=== PATIENT | female | born 1970 | race Caucasian/White ===

== ENCOUNTER 2017-08-01 20:48 | Emergency (ER) | payer MEDICARE, MEDICAID ==
[~2017-08-01] VITALS: Ht 162.6 cm; Wt 61.5 kg
[~2017-08-01 20:48] MED LIST: CEPH500T PO; DIPH25CA83 PO; NO HOME MEDS
[2017-08-01 22:01] LABS: BASOPHILS % (AUTO) 0.3 % (0-1); EOSINOPHILS # (AUTO) 0.2 X10'3 (0-0.9); EOSINOPHILS % (AUTO) 1.5 % (0-6); HEMATOCRIT 41.7 % (35.0-45.0); HEMOGLOBIN 14.4 g/dl (12.0-16.0); LYMPHOCYTES # (AUTO) 2.7 X10'3 (1.1-4.8); LYMPHOCYTES % (AUTO) 20.2 % (21-51); MEAN CORPUSCULAR HEMOGLOBIN 31.6 PG (27.0-31.0); MEAN CORPUSCULAR HGB CONC 34.5 % (33.0-36.5); MEAN CORPUSCULAR VOLUME 91.5 FL (78-98); MEAN PLATELET VOLUME 6.6 FL (7.4-10.4); MONOCYTES # (AUTO) 0.8 X10'3 (0-0.9); MONOCYTES % (AUTO) 5.9 % (2-12); NEUTROPHILS # (AUTO) 9.6 X10'3 (1.8-7.7); NEUTROPHILS % (AUTO) 72.1 % (42-75); PLATELET COUNT 381 X10'3 (140-440); RED BLOOD COUNT 4.55 X10'6 (4.20-5.60); RED CELL DISTRIBUTION WIDTH 13.1 % (11.5-14.5); WHITE BLOOD COUNT 13.3 X10'3 (4.5-11.0)
[2017-08-01 22:20] LABS: ALANINE AMINOTRANSFERASE 30 U/L (12-78); ALBUMIN 3.6 G/DL (3.4-5.0); ALBUMIN/GLOBULIN RATIO 0.8 (1.1-1.5); ALKALINE PHOSPHATASE 76 IU/L (46-116); ANION GAP 11 (8-16); ASPARTATE AMINO TRANSFERASE 31 U/L (10-37); BILIRUBIN,TOTAL 0.3 MG/DL (0.1-1.0); BLOOD UREA NITROGEN 9 MG/DL (7-18); BUN/CREATININE RATIO 12.5 (6.6-38.0); CALCIUM 8.7 MG/DL (8.5-10.1); CHLORIDE 102 MMOL/L (99-107); CREATININE 0.72 MG/DL (0.40-0.90); GLUCOSE 83 MG/DL (70-104); SODIUM 138 MMOL/L (135-145); TOTAL CARBON DIOXIDE 24.9 MMOL/L (24-32); eGFR 87 ML/MIN
[2017-08-01 23:49] VITALS: BP 127/44
== END 2017-08-01 23:51 | disposition home or self-care (01) ==
LOC: ER 20:49
DX: R07.9 Chest pain, unspecified (principal); K44.9 Diaphragmatic hernia without obstruction or gangrene; Z98.51 Tubal ligation status; Z56.0 Unemployment, unspecified
CPT/HCPCS: 36415; 71045; 80053; 84484; 85025; 93005; 99285

== ENCOUNTER 2017-12-16 19:28 | Emergency (ER) | payer MEDICARE, MEDICAID ==
[~2017-12-16] VITALS: Ht 162.6 cm; Wt 59.9 kg
[~2017-12-16 19:28] MED LIST changes: +NITR100C6 PO; +PHEN-716 PO
[2017-12-16 19:51] VITALS: BP 99/65
[2017-12-16] MEDS ORDERED: PENI500T2 PO (21:08)
[2017-12-16] MEDS ORDERED: ONDA8TAB9 PO (21:08)
[2017-12-16] MEDS ORDERED: HYDR-565 PO (21:08)
[2017-12-16] MEDS ORDERED: ondansetron 4mg rapidly disintigrating tab PO ONE (21:10)
[2017-12-16] MEDS ORDERED: HYDROcodone/acetaminophen 10/325mg tab PO ONE (21:10)
[2017-12-16] MEDS ORDERED: penicillin V potassium 500mg tablet PO ONE (21:10)
== END 2017-12-16 21:39 | disposition home or self-care (01) ==
LOC: ER 19:28
DX: K04.7 Periapical abscess without sinus (principal); Z86.14 Personal history of Methicillin resistant Staphylococcus aureus infection; Z90.89 Acquired absence of other organs; Z56.0 Unemployment, unspecified; Z79.899 Other long term (current) drug therapy
CPT/HCPCS: 99284

== ENCOUNTER 2018-04-17 07:46 | Emergency (ER) | payer MEDICARE, MEDICAID ==
[~2018-04-17] VITALS: Ht 162.6 cm; Wt 65.2 kg
[~2018-04-17 07:46] MED LIST changes: +ONDA8TAB9 PO; +PENI500T2 PO
[2018-04-17 07:49] VITALS: BP 148/98
[2018-04-17] MEDS ORDERED: CLIN150C8 PO (08:20)
[2018-04-17] MEDS ORDERED: clindamycin 150mg capsule PO ONE (08:20)
[2018-04-17] MEDS ORDERED: HYDROcodone/acetaminophen 5mg/325mg tablet PO ONE (08:40)
[2018-04-17] MEDS ORDERED: ibuprofen 200mg tablet PO ONE (08:45)
== END 2018-04-17 08:52 | disposition home or self-care (01) ==
LOC: ER 07:46
DX: K08.89 Other specified disorders of teeth and supporting structures (principal); K04.7 Periapical abscess without sinus; Z56.0 Unemployment, unspecified; Z98.890 Other specified postprocedural states; Z98.51 Tubal ligation status; Z86.14 Personal history of Methicillin resistant Staphylococcus aureus infection
CPT/HCPCS: 99283

== ENCOUNTER 2018-06-08 16:17 | Emergency (ER) | payer MEDICARE, MEDICAID ==
[~2018-06-08] VITALS: Ht 162.6 cm; Wt 65.0 kg
[~2018-06-08 16:17] MED LIST changes: +CLIN150C8 PO; -PENI500T2 PO
[2018-06-08] MEDS ORDERED: metoclopramide 5 mg/ml inj IV ONE (17:55)
[2018-06-08] MEDS ORDERED: ketorolac tromethamine 15mg/ml inj. IV ONE (17:55)
[2018-06-08] MEDS ORDERED: diphenhydrAMINE 50 mg/ml inj IV ONE (17:55)
[2018-06-08 18:30] LABS: BASOPHILS % (AUTO) 0.4 % (0-1); EOSINOPHILS # (AUTO) 0.1 X10'3 (0-0.9); HEMATOCRIT 37.2 % (35.0-45.0); HEMOGLOBIN 12.2 g/dl (12.0-16.0); LYMPHOCYTES # (AUTO) 1.6 X10'3 (1.1-4.8); LYMPHOCYTES % (AUTO) 19.9 % (21-51); MEAN CORPUSCULAR HGB CONC 32.8 % (33.0-36.5); MEAN CORPUSCULAR VOLUME 94.5 FL (78-98); MEAN PLATELET VOLUME 6.9 FL (7.4-10.4); MONOCYTES # (AUTO) 0.8 X10'3 (0-0.9); MONOCYTES % (AUTO) 9.4 % (2-12); NEUTROPHILS # (AUTO) 5.6 X10'3 (1.8-7.7); NEUTROPHILS % (AUTO) 69.3 % (42-75); PLATELET COUNT 617 X10'3 (140-440); RED BLOOD COUNT 3.94 X10'6 (4.20-5.60); RED CELL DISTRIBUTION WIDTH 12.9 % (11.5-14.5); WHITE BLOOD COUNT 8.1 X10'3 (4.5-11.0)
[2018-06-08 18:33] LABS: CLARITY,URINE CLEAR (Clear); COLOR,URINE YELLOW (Yellow); GLUCOSE, URINE NEGATIVE (Neg); KETONES,URINE NEGATIVE (Neg); LEUKOCYTE ESTERASE ,URINE NEGATIVE (Neg); NITRITES, URINE NEGATIVE (Neg); OCCULT BLOOD,URINE NEGATIVE (Neg); PH,URINE 6.5 (4.8-8.0); PROTEIN,URINE NEGATIVE (Neg); UROBILINOGEN,URINE 0.2 E.U/dL (0.2-1.0)
[2018-06-08 18:35] LABS: URINE HCG NEGATIVE (NEG)
[2018-06-08 18:39] LABS: INR 1.1 INR; PROTHROMBIN TIME 11.4 SECONDS (9.0-12.0)
[2018-06-08 18:41] LABS: UA COLLECTION TYPE CLN CATCH MIDSTREAM
[2018-06-08 18:52] LABS: ALANINE AMINOTRANSFERASE 54 U/L (12-78); ALBUMIN 2.5 G/DL (3.4-5.0); ALBUMIN/GLOBULIN RATIO 0.5 (1.1-1.5); ALKALINE PHOSPHATASE 75 IU/L (46-116); AMYLASE 55 U/L (25-115); ANION GAP 12 (8-16); ASPARTATE AMINO TRANSFERASE 42 U/L (10-37); BILIRUBIN,TOTAL 0.3 MG/DL (0.1-1.0); BLOOD UREA NITROGEN 8 MG/DL (7-18); BUN/CREATININE RATIO 12.9 (6.6-38.0); CALCIUM 8.6 MG/DL (8.5-10.1); CHLORIDE 98 MMOL/L (99-107); CREATININE 0.62 MG/DL (0.40-0.90); GLUCOSE 126 MG/DL (70-104); LIPASE 210 U/L (73-393); POTASSIUM 3.7 MMOL/L (3.5-5.1); SODIUM 136 MMOL/L (135-145); TOTAL CARBON DIOXIDE 26.3 MMOL/L (24-32); TOTAL PROTEIN 7.4 G/DL (6.4-8.2); eGFR > 90 ML/MIN
[2018-06-08 19:31] VITALS: BP 117/72
== END 2018-06-08 20:25 | disposition home or self-care (01) ==
LOC: ER 16:17
DX: J90 Pleural effusion, not elsewhere classified (principal); R19.7 Diarrhea, unspecified; Z98.51 Tubal ligation status; Z56.0 Unemployment, unspecified
CPT/HCPCS: 36415; 74176; 80053; 81003; 81025; 82150; 83690; 85025; 85610; 85651; 86140; 93005; 96374; 96375; 99284; J1200; J1885; J2765

== ENCOUNTER 2019-03-31 19:06 | Emergency (ER) | payer MEDICARE, MEDICAID ==
[~2019-03-31] VITALS: Ht 162.6 cm; Wt 75.0 kg
[2019-03-31 19:18] VITALS: BP 136/90
[2019-03-31] MEDS ORDERED: SULF5DRO RIGHTEYE (21:08)
== END 2019-03-31 21:32 | disposition home or self-care (01) ==
LOC: ER 19:07
DX: H10.9 Unspecified conjunctivitis (principal); F17.200 Nicotine dependence, unspecified, uncomplicated; Z79.2 Long term (current) use of antibiotics; Z79.899 Other long term (current) drug therapy; Z86.14 Personal history of Methicillin resistant Staphylococcus aureus infection; Z87.440 Personal history of urinary (tract) infections; Z98.890 Other specified postprocedural states; Z98.51 Tubal ligation status; Z56.0 Unemployment, unspecified
CPT/HCPCS: 99283

== ENCOUNTER 2019-05-06 01:51 | Emergency (ER) | payer MEDICARE, MEDICAID ==
[~2019-05-06] VITALS: Ht 162.6 cm; Wt 68.2 kg
[~2019-05-06 01:51] MED LIST changes: +SULF5DRO RIGHTEYE
[2019-05-06 02:52] LABS: CLARITY,URINE TURBID (Clear); COLOR,URINE BROWN (Yellow); GLUCOSE, URINE NEGATIVE (Neg); KETONES,URINE NEGATIVE (Neg); LEUKOCYTE ESTERASE ,URINE SMALL (Neg); NITRITES, URINE NEGATIVE (Neg); OCCULT BLOOD,URINE LARGE (Neg); PROTEIN,URINE 100 mg/dl (Neg)
[2019-05-06 02:55] VITALS: BP 140/95
[2019-05-06 03:23] LABS: UA COLLECTION TYPE CLN CATCH MIDSTREAM
[2019-05-06 03:24] LABS: BACTERIA,URINE 1+ /HPF (Neg); RBC,URINE 50-100 /HPF (0-2); WBC,URINE 30-50 /HPF (0-4)
[2019-05-06 03:25] LABS: SQUAMOUS EPITHELIAL CELL,UR FEW /LPF (FEW)
--- NOTE | 2019-05-06 03:25 | NUR ---
PT UP OUT OF BED . PACING ENCOURAGE THE PATIENT TO STAY IN HER ROOM
[2019-05-06] MEDS ORDERED: PHEN-716 PO (03:31)
[2019-05-06] MEDS ORDERED: NITR100C6 PO (03:31)
[2019-05-06] MEDS ORDERED: phenazopyridine 100mg tablet PO ONE (03:35)
[2019-05-06] MEDS ORDERED: nitrofuran/nitrofuran macrocrysal 100 MG capsule PO ONE (03:35)
== END 2019-05-06 03:50 | disposition home or self-care (01) ==
LOC: ER 01:52
DX: N30.90 Cystitis, unspecified without hematuria (principal); Z86.14 Personal history of Methicillin resistant Staphylococcus aureus infection; Z98.51 Tubal ligation status; Z98.890 Other specified postprocedural states; Z56.0 Unemployment, unspecified; Z79.899 Other long term (current) drug therapy
CPT/HCPCS: 81001; 87077; 87088; 87186; 99283

== ENCOUNTER 2019-07-26 18:18 | Emergency (ER) | payer MEDICAID, MEDICARE ==
[~2019-07-26] VITALS: Ht 162.6 cm; Wt 68.1 kg
[2019-07-26 18:26] VITALS: BP 156/102
[2019-07-26] MEDS ORDERED: triamcinolone acetonide 40mg/ml inj IM ONE (19:55)
== END 2019-07-26 20:14 | disposition home or self-care (01) ==
LOC: ER 18:19
DX: L23.7 Allergic contact dermatitis due to plants, except food (principal); F17.200 Nicotine dependence, unspecified, uncomplicated; Z56.0 Unemployment, unspecified; Z87.01 Personal history of pneumonia (recurrent); Z87.440 Personal history of urinary (tract) infections; Z86.14 Personal history of Methicillin resistant Staphylococcus aureus infection; Z98.890 Other specified postprocedural states; Z98.51 Tubal ligation status; Z79.899 Other long term (current) drug therapy
CPT/HCPCS: 96372; 99283; J3301

== ENCOUNTER 2019-08-08 17:42 | Emergency (ER) | payer MEDICARE ==
[~2019-08-08] VITALS: Ht 162.6 cm; Wt 66.8 kg
[2019-08-08 18:06] VITALS: BP 145/95
[2019-08-08] MEDS ORDERED: PENI500T2 PO (19:23)
[2019-08-08] MEDS ORDERED: penicillin V potassium 500mg tablet PO ONE (19:25)
[2019-08-08] MEDS ORDERED: HYDROcodone/acetaminophen 5mg/325mg tablet PO ONE (19:25)
== END 2019-08-08 20:02 | disposition home or self-care (01) ==
LOC: ER 17:43
DX: K08.89 Other specified disorders of teeth and supporting structures (principal); Z86.14 Personal history of Methicillin resistant Staphylococcus aureus infection; Z87.59 Personal history of other complications of pregnancy, childbirth and the puerperium; Z98.51 Tubal ligation status; Z56.0 Unemployment, unspecified; Z79.2 Long term (current) use of antibiotics; Z79.899 Other long term (current) drug therapy
CPT/HCPCS: 99283

== ENCOUNTER 2019-08-24 10:25 | Emergency (ER) | payer MEDICARE ==
[~2019-08-24] VITALS: Ht 162.6 cm; Wt 68.2 kg
[~2019-08-24 10:25] MED LIST changes: +PENI500T2 PO
[2019-08-24 10:28] VITALS: BP 169/100
[2019-08-24] MEDS ORDERED: ALBU6.7H9 INH (11:13)
[2019-08-24] MEDS ORDERED: PRED20TA PO (11:13)
[2019-08-24] MEDS ORDERED: AMOX-422 PO (11:13)
--- NOTE | 2019-08-24 11:19 | NUR ---
Pt is deaf. Pt offered formal interpretation but declined. Communication through writing messages. Pt felt accomadated.
== END 2019-08-24 11:24 | disposition home or self-care (01) ==
LOC: ER 10:25
DX: J40 Bronchitis, not specified as acute or chronic (principal); J44.1 Chronic obstructive pulmonary disease with (acute) exacerbation; Z86.14 Personal history of Methicillin resistant Staphylococcus aureus infection; Z98.51 Tubal ligation status; Z98.890 Other specified postprocedural states; Z56.0 Unemployment, unspecified; Z79.899 Other long term (current) drug therapy
CPT/HCPCS: 71045; 99283

== ENCOUNTER 2019-10-14 15:47 | Emergency (ER) | payer MEDICARE, MEDICAID ==
[~2019-10-14] VITALS: Ht 162.6 cm; Wt 71.0 kg
[~2019-10-14 15:47] MED LIST changes: +ALBU6.7H9 INH; -PENI500T2 PO
[2019-10-14 16:01] VITALS: BP 128/86
[2019-10-14] MEDS ORDERED: penicillin V potassium 500mg tablet PO ONE (16:55)
[2019-10-14] MEDS ORDERED: ketorolac tromethamine 15mg/ml inj. IM ONE (16:55)
[2019-10-14 17:20] LABS: BASOPHILS # (AUTO) 0.1 X10'3 (0-0.2); BASOPHILS % (AUTO) 0.6 % (0-1); EOSINOPHILS # (AUTO) 0.2 X10'3 (0-0.9); HEMATOCRIT 42.7 % (35.0-45.0); HEMOGLOBIN 14.5 g/dl (12.0-16.0); LYMPHOCYTES # (AUTO) 1.9 X10'3 (1.1-4.8); LYMPHOCYTES % (AUTO) 22.1 % (21-51); MEAN CORPUSCULAR HEMOGLOBIN 33.1 PG (27.0-31.0); MEAN CORPUSCULAR VOLUME 97.1 FL (78-98); MONOCYTES # (AUTO) 0.6 X10'3 (0-0.9); MONOCYTES % (AUTO) 6.6 % (2-12); NEUTROPHILS % (AUTO) 68.7 % (42-75); PLATELET COUNT 249 X10'3 (140-440); RED BLOOD COUNT 4.39 X10'6 (4.20-5.60); WHITE BLOOD COUNT 8.8 X10'3 (4.5-11.0)
[2019-10-14] MEDS ORDERED: PENI500T2 PO (17:24)
[2019-10-14] MEDS ORDERED: CHLO473M3 PO (17:25)
[2019-10-14 17:43] LABS: ALANINE AMINOTRANSFERASE 23 U/L (12-78); ALBUMIN 3.3 G/DL (3.4-5.0); ALBUMIN/GLOBULIN RATIO 0.9 (1.1-1.5); ALKALINE PHOSPHATASE 78 IU/L (46-116); ANION GAP 7 (8-16); ASPARTATE AMINO TRANSFERASE 20 U/L (10-37); BILIRUBIN,TOTAL 0.3 MG/DL (0.1-1.0); BLOOD UREA NITROGEN 8 MG/DL (7-18); BUN/CREATININE RATIO 10.7 (6.6-38.0); CHLORIDE 104 MMOL/L (99-107); CREATININE 0.75 MG/DL (0.40-0.90); GLUCOSE 88 MG/DL (70-104); POTASSIUM 3.9 MMOL/L (3.5-5.1); SODIUM 141 MMOL/L (135-145); TOTAL CARBON DIOXIDE 30.2 MMOL/L (24-32); TOTAL PROTEIN 6.9 G/DL (6.4-8.2); eGFR 82 ML/MIN
== END 2019-10-14 18:07 | disposition home or self-care (01) ==
LOC: ER 15:48
DX: K04.7 Periapical abscess without sinus (principal); R07.89 Other chest pain; F12.90 Cannabis use, unspecified, uncomplicated; J44.9 Chronic obstructive pulmonary disease, unspecified; Z86.14 Personal history of Methicillin resistant Staphylococcus aureus infection; Z98.51 Tubal ligation status; Z56.0 Unemployment, unspecified; Z79.899 Other long term (current) drug therapy
CPT/HCPCS: 36415; 71045; 80053; 84484; 85025; 93005; 96372; 99285; J1885

== ENCOUNTER 2019-10-26 17:12 | Emergency (ER) | payer MEDICARE, MEDICAID ==
[~2019-10-26] VITALS: Ht 170.2 cm; Wt 80.0 kg
[~2019-10-26 17:12] MED LIST changes: +CHLO473M3 PO; +PENI500T2 PO
[2019-10-26] MEDS ORDERED: LIDOcaine 4% (40 mg/ml) topical solution 50ml TP ONE (18:20)
[2019-10-26 19:01] VITALS: BP 164/98
== END 2019-10-26 19:10 | disposition home or self-care (01) ==
LOC: ER 17:13
DX: H92.01 Otalgia, right ear (principal); J44.9 Chronic obstructive pulmonary disease, unspecified; F12.90 Cannabis use, unspecified, uncomplicated; Z86.14 Personal history of Methicillin resistant Staphylococcus aureus infection; Z98.51 Tubal ligation status; Z98.890 Other specified postprocedural states; Z56.0 Unemployment, unspecified; Z79.899 Other long term (current) drug therapy
CPT/HCPCS: 99282

== ENCOUNTER 2019-12-13 22:59 | Emergency (ER) | payer MEDICARE, MEDICAID ==
[~2019-12-13] VITALS: Ht 162.6 cm; Wt 77.0 kg
[~2019-12-13 22:59] MED LIST changes: -PENI500T2 PO
[2019-12-13 23:37] LABS: BASOPHILS # (AUTO) 0.1 X10'3 (0-0.2); EOSINOPHILS # (AUTO) 0.2 X10'3 (0-0.9); EOSINOPHILS % (AUTO) 2.6 % (0-6); HEMATOCRIT 43.5 % (35.0-45.0); HEMOGLOBIN 14.6 g/dl (12.0-16.0); LYMPHOCYTES # (AUTO) 2.8 X10'3 (1.1-4.8); LYMPHOCYTES % (AUTO) 31.1 % (21-51); MEAN CORPUSCULAR HEMOGLOBIN 32.2 PG (27.0-31.0); MEAN CORPUSCULAR HGB CONC 33.6 g/dL (33.0-36.5); MEAN CORPUSCULAR VOLUME 95.8 FL (78-98); MEAN PLATELET VOLUME 7.5 FL (7.4-10.4); MONOCYTES # (AUTO) 0.6 X10'3 (0-0.9); MONOCYTES % (AUTO) 7.1 % (2-12); NEUTROPHILS # (AUTO) 5.3 X10'3 (1.8-7.7); NEUTROPHILS % (AUTO) 58.2 % (42-75); PLATELET COUNT 257 X10'3 (140-440); RED BLOOD COUNT 4.54 X10'6 (4.20-5.60); RED CELL DISTRIBUTION WIDTH 12.6 % (11.5-14.5); WHITE BLOOD COUNT 9.1 X10'3 (4.5-11.0)
[2019-12-13 23:48] LABS: ALANINE AMINOTRANSFERASE 27 U/L (12-78); ALBUMIN 3.8 G/DL (3.4-5.0); ALKALINE PHOSPHATASE 79 IU/L (46-116); ANION GAP 10 (8-16); ASPARTATE AMINO TRANSFERASE 24 U/L (10-37); BILIRUBIN,TOTAL 0.3 MG/DL (0.1-1.0); BLOOD UREA NITROGEN 18 MG/DL (7-18); CALCIUM 8.9 MG/DL (8.5-10.1); CHLORIDE 104 MMOL/L (99-107); CREATININE 1.06 MG/DL (0.40-0.90); GLUCOSE 135 MG/DL (70-104); LIPASE 137 U/L (73-393); POTASSIUM 3.9 MMOL/L (3.5-5.1); SODIUM 141 MMOL/L (135-145); TOTAL CARBON DIOXIDE 26.8 MMOL/L (24-32); TOTAL PROTEIN 7.6 G/DL (6.4-8.2); eGFR 55 ML/MIN
[2019-12-14] MEDS ORDERED: iohexol 300mg/ml 100ml inj. ONE (01:03)
[2019-12-14 03:57] VITALS: BP 108/66
== END 2019-12-14 04:07 | disposition home or self-care (01) ==
LOC: ER 22:59
DX: R10.9 Unspecified abdominal pain (principal); R20.2 Paresthesia of skin; J44.9 Chronic obstructive pulmonary disease, unspecified; F17.200 Nicotine dependence, unspecified, uncomplicated; F12.90 Cannabis use, unspecified, uncomplicated; Z86.14 Personal history of Methicillin resistant Staphylococcus aureus infection; Z98.51 Tubal ligation status; Z98.890 Other specified postprocedural states; Z72.89 Other problems related to lifestyle; Z56.0 Unemployment, unspecified; Z79.899 Other long term (current) drug therapy
CPT/HCPCS: 36415; 74177; 80053; 83690; 85025; 99285; Q9967

== ENCOUNTER 2020-01-27 19:39 | Emergency (ER) | payer MEDICARE, MEDICAID ==
[~2020-01-27] VITALS: Ht 162.6 cm; Wt 70.0 kg
--- NOTE | 2020-01-27 23:19 | NUR ---
pt has given permission to talk with daughter about care.
--- NOTE | 2020-01-27 23:40 | NUR ---
PT DAUGHTER VAHE MENJIVAR BE REACHED [phone]
[2020-01-28] MEDS ORDERED: ketorolac tromethamine 15mg/ml inj. IM ONE (01:00)
[2020-01-28] MEDS ORDERED: acetaminophen 325mg tablet PO ONE (01:00)
--- NOTE | 2020-01-28 01:13 | NUR ---
Dr. Kaminski at bedside writing on paper to communicate with Pt. We obtained the laptop with [employer] safety representative and used for further assessment. Pt to have d dimer drawn and if positive then will have ultrasound. current vss. Pt cooperative.
--- NOTE | 2020-01-28 01:22 | NUR ---
pts daughter called and updated on plan of care.
--- NOTE | 2020-01-28 01:39 | NUR ---
given toradol 15 mg shot and tylenol 650 mg.
[2020-01-28 01:55] LABS: D-DIMER 0.33 MG/L FEU (0-0.50)
[2020-01-28] MEDS ORDERED: AMOX500C2 PO (02:02)
[2020-01-28 02:55] VITALS: BP 131/85
== END 2020-01-28 03:00 | disposition home or self-care (01) ==
LOC: ER 19:40
DX: K02.9 Dental caries, unspecified (principal); K08.89 Other specified disorders of teeth and supporting structures; M79.662 Pain in left lower leg; J44.9 Chronic obstructive pulmonary disease, unspecified; F12.90 Cannabis use, unspecified, uncomplicated; Z87.01 Personal history of pneumonia (recurrent); Z87.440 Personal history of urinary (tract) infections; Z86.14 Personal history of Methicillin resistant Staphylococcus aureus infection; Z98.51 Tubal ligation status; Z98.890 Other specified postprocedural states; Z72.89 Other problems related to lifestyle; Z56.0 Unemployment, unspecified; Z79.2 Long term (current) use of antibiotics; Z79.899 Other long term (current) drug therapy
CPT/HCPCS: 36415; 85379; 96372; 99285; J1885

== ENCOUNTER 2020-05-03 19:19 | Emergency (ER) | payer MEDICARE, MEDICAID ==
[~2020-05-03] VITALS: Ht 162.6 cm; Wt 74.7 kg
[2020-05-03 19:21] VITALS: BP 160/97
[2020-05-03] MEDS ORDERED: PENI500T2 PO (19:47)
== END 2020-05-03 19:53 | disposition home or self-care (01) ==
LOC: ER 19:19
DX: K08.89 Other specified disorders of teeth and supporting structures (principal); F12.90 Cannabis use, unspecified, uncomplicated; J44.9 Chronic obstructive pulmonary disease, unspecified; Z86.14 Personal history of Methicillin resistant Staphylococcus aureus infection; Z98.891 History of uterine scar from previous surgery; Z98.51 Tubal ligation status; Z56.0 Unemployment, unspecified; Z79.2 Long term (current) use of antibiotics; Z79.899 Other long term (current) drug therapy; Z72.89 Other problems related to lifestyle
CPT/HCPCS: 99283

== ENCOUNTER 2020-06-08 14:52 | Emergency (ER) | payer MEDICARE, MEDICAID ==
[~2020-06-08] VITALS: Ht 162.6 cm; Wt 73.4 kg
[2020-06-08 14:57] VITALS: BP 138/84
[2020-06-08] MEDS ORDERED: triamcinolone acetonide 40mg/ml inj IM ONE (15:15)
[2020-06-08] MEDS ORDERED: PRED20TA PO (15:17)
== END 2020-06-08 15:28 | disposition home or self-care (01) ==
LOC: ER 14:53
DX: L23.7 Allergic contact dermatitis due to plants, except food (principal); J44.9 Chronic obstructive pulmonary disease, unspecified; F17.200 Nicotine dependence, unspecified, uncomplicated; F12.90 Cannabis use, unspecified, uncomplicated; Z87.440 Personal history of urinary (tract) infections; Z86.14 Personal history of Methicillin resistant Staphylococcus aureus infection; Z87.01 Personal history of pneumonia (recurrent); Z98.51 Tubal ligation status; Z98.890 Other specified postprocedural states; Z72.89 Other problems related to lifestyle; Z56.0 Unemployment, unspecified; Z79.2 Long term (current) use of antibiotics; Z79.899 Other long term (current) drug therapy
CPT/HCPCS: 96372; 99283; J3301

== ENCOUNTER 2020-07-24 02:28 | Emergency (ER) | payer MEDICARE, MEDICAID ==
[~2020-07-24] VITALS: Ht 162.6 cm; Wt 70.5 kg
[2020-07-24 02:36] VITALS: BP 158/93
[2020-07-24] MEDS ORDERED: HYDROcodone/acetaminophen 5mg/325mg tablet PO ONE (03:05)
[2020-07-24] MEDS ORDERED: naproxen 500mg tablet PO ONE (03:05)
[2020-07-24] MEDS ORDERED: amox tr/potassium clavulanate 875/125mg TAB PO ONE (03:05)
[2020-07-24] MEDS ORDERED: AMOX-422 PO (03:20)
[2020-07-24] MEDS ORDERED: NAPR-56 PO (03:20)
== END 2020-07-24 03:41 | disposition home or self-care (01) ==
LOC: ER 02:29
DX: K02.9 Dental caries, unspecified (principal); L03.211 Cellulitis of face; K08.89 Other specified disorders of teeth and supporting structures; L23.7 Allergic contact dermatitis due to plants, except food; J44.9 Chronic obstructive pulmonary disease, unspecified; F12.90 Cannabis use, unspecified, uncomplicated; Z87.440 Personal history of urinary (tract) infections; Z86.14 Personal history of Methicillin resistant Staphylococcus aureus infection; Z87.01 Personal history of pneumonia (recurrent); Z98.51 Tubal ligation status; Z98.890 Other specified postprocedural states; Z72.89 Other problems related to lifestyle; Z56.0 Unemployment, unspecified; Z79.2 Long term (current) use of antibiotics; Z79.899 Other long term (current) drug therapy
CPT/HCPCS: 99284

== ENCOUNTER 2020-10-02 05:39 | Emergency (ER) | payer MEDICARE, MEDICAID ==
[~2020-10-02] VITALS: Ht 162.6 cm; Wt 77.0 kg
[2020-10-02 05:52] VITALS: BP 142/74
[2020-10-02] MEDS ORDERED: SULF1TAB49 PO (06:25)
== END 2020-10-02 06:58 | disposition home or self-care (01) ==
LOC: ER 05:40
DX: L03.116 Cellulitis of left lower limb (principal); J44.9 Chronic obstructive pulmonary disease, unspecified; F12.90 Cannabis use, unspecified, uncomplicated; Z79.2 Long term (current) use of antibiotics; Z79.899 Other long term (current) drug therapy; Z87.01 Personal history of pneumonia (recurrent); Z86.14 Personal history of Methicillin resistant Staphylococcus aureus infection; Z98.891 History of uterine scar from previous surgery; Z98.51 Tubal ligation status; Z56.0 Unemployment, unspecified
CPT/HCPCS: 99283

== ENCOUNTER 2020-12-16 00:17 | Emergency (ER) | payer MEDICARE, MEDICAID ==
[~2020-12-16] VITALS: Ht 162.6 cm; Wt 72.7 kg
[2020-12-16 02:50] VITALS: BP 117/69
[2020-12-16] MEDS ORDERED: dicyclomine 10 MG capsule PO ONE (03:05)
[2020-12-16 03:26] LABS: ALANINE AMINOTRANSFERASE 29 U/L (12-78); ALBUMIN 3.6 G/DL (3.4-5.0); ALBUMIN/GLOBULIN RATIO 1.2 (1.1-1.5); ALKALINE PHOSPHATASE 66 IU/L (46-116); ANION GAP 5 (8-16); ASPARTATE AMINO TRANSFERASE 31 U/L (10-37); BILIRUBIN,TOTAL 0.5 MG/DL (0.1-1.0); BLOOD UREA NITROGEN 18 MG/DL (7-18); BUN/CREATININE RATIO 23.1 (6.6-38.0); CALCIUM 8.1 MG/DL (8.5-10.1); CHLORIDE 105 MMOL/L (99-107); CREATININE 0.78 MG/DL (0.40-0.90); GLUCOSE 94 MG/DL (70-104); SODIUM 138 MMOL/L (135-145); TOTAL CARBON DIOXIDE 27.9 MMOL/L (24-32); TOTAL PROTEIN 6.7 G/DL (6.4-8.2); eGFR 78 ML/MIN
[2020-12-16] MEDS ORDERED: DICY10CA88 PO (03:46)
[2020-12-16] MEDS ORDERED: OMEP40CA21 PO (03:46)
== END 2020-12-16 03:57 | disposition home or self-care (01) ==
LOC: ER 00:18
DX: R10.11 Right upper quadrant pain (principal); R10.13 Epigastric pain; R11.0 Nausea; J44.9 Chronic obstructive pulmonary disease, unspecified; F12.90 Cannabis use, unspecified, uncomplicated; F17.210 Nicotine dependence, cigarettes, uncomplicated; Z87.01 Personal history of pneumonia (recurrent); Z86.14 Personal history of Methicillin resistant Staphylococcus aureus infection; Z87.440 Personal history of urinary (tract) infections; Z72.89 Other problems related to lifestyle; Z56.0 Unemployment, unspecified; Z79.2 Long term (current) use of antibiotics; Z79.899 Other long term (current) drug therapy
CPT/HCPCS: 36415; 80053; 99283

== ENCOUNTER 2021-02-19 23:07 | Emergency (ER) | payer MEDICARE, MEDICAID ==
[~2021-02-19] VITALS: Ht 162.6 cm; Wt 77.2 kg
[2021-02-19] MEDS ORDERED: ibuprofen tablet 400 MG TABLET PO ONE (23:50)
[2021-02-19] MEDS ORDERED: acetaminophen 325mg tablet PO ONE (23:50)
[2021-02-19] MEDS ORDERED: ibuprofen 200mg tablet PO ONE (23:55)
[2021-02-20] MEDS ORDERED: IBUP-1985 PO (00:33)
[2021-02-20] MEDS ORDERED: ACET-812 PO (00:33)
--- NOTE | 2021-02-20 01:34 | NUR ---
PATIENT SEEN AND TREATED BY . NO FX'S FOUND. KNEE CONTUSION, ANKLE ABRASION. TRIPLE ANTIBIOTIC APPLIED. PO MOTRIN AND TYLENOL GIVEN. PATIENT GIVEN AND EXHIBITS UNDERSTANDING OF DISCH INST. DISCH TO HOME.
[2021-02-20 01:36] VITALS: BP 119/87
== END 2021-02-20 01:40 | disposition home or self-care (01) ==
LOC: ER 23:09
DX: S80.02XA Contusion of left knee, initial encounter (principal); S90.811A Abrasion, right foot, initial encounter; J44.9 Chronic obstructive pulmonary disease, unspecified; F12.90 Cannabis use, unspecified, uncomplicated; Z87.01 Personal history of pneumonia (recurrent); Z86.14 Personal history of Methicillin resistant Staphylococcus aureus infection; Z72.89 Other problems related to lifestyle; Z56.0 Unemployment, unspecified; Z98.891 History of uterine scar from previous surgery; Z98.51 Tubal ligation status; Z87.440 Personal history of urinary (tract) infections; Z79.2 Long term (current) use of antibiotics; Z79.899 Other long term (current) drug therapy; W19.XXXA Unspecified fall, initial encounter; Y93.89 Activity, other specified; Y92.89 Other specified places as the place of occurrence of the external cause; Y99.8 Other external cause status
CPT/HCPCS: 73560; 73630; 99284

== ENCOUNTER 2021-04-06 02:12 | Emergency (ER) | payer MEDICARE, MEDICAID ==
[~2021-04-06] VITALS: Ht 162.6 cm; Wt 69.3 kg
[~2021-04-06 02:12] MED LIST changes: +ACET-812 PO; +IBUP-1985 PO
[2021-04-06] MEDS ORDERED: IBUP-1984 PO (04:10)
--- NOTE | 2021-04-06 04:54 | NUR ---
Patient was evaluated by ER MD. Patient exhibits anger and defiance to medical personnel. Patient knee was wrapped with an SHONA. Disch to home with flu inst.
[2021-04-06 05:07] VITALS: BP 109/71
== END 2021-04-06 05:26 | disposition home or self-care (01) ==
LOC: ER 02:12
DX: M17.12 Unilateral primary osteoarthritis, left knee (principal); M25.562 Pain in left knee; J44.9 Chronic obstructive pulmonary disease, unspecified; F12.90 Cannabis use, unspecified, uncomplicated; Z86.14 Personal history of Methicillin resistant Staphylococcus aureus infection; Z87.440 Personal history of urinary (tract) infections; Z87.01 Personal history of pneumonia (recurrent); Z98.51 Tubal ligation status; Z98.890 Other specified postprocedural states; Z72.89 Other problems related to lifestyle; Z56.0 Unemployment, unspecified; Z79.2 Long term (current) use of antibiotics; Z79.899 Other long term (current) drug therapy
CPT/HCPCS: 73564; 99283

== ENCOUNTER 2021-10-21 06:56 | Emergency (ER) | payer MEDICARE, MEDICAID ==
[~2021-10-21] VITALS: Ht 162.6 cm; Wt 77.3 kg
[2021-10-21 07:00] VITALS: BP 133/99
[2021-10-21 08:02] LABS: CLARITY,URINE CLEAR (Clear); COLOR,URINE YELLOW (Yellow); GLUCOSE, URINE NEGATIVE (Neg); KETONES,URINE NEGATIVE (Neg); LEUKOCYTE ESTERASE ,URINE NEGATIVE (Neg); NITRITES, URINE NEGATIVE (Neg); OCCULT BLOOD,URINE NEGATIVE (Neg); PROTEIN,URINE NEGATIVE (Neg); UROBILINOGEN,URINE 0.2 E.U/dL (0.2-1.0)
[2021-10-21 08:03] LABS: UA COLLECTION TYPE VOIDED
--- NOTE | 2021-10-21 08:27 | NUR ---
PT PLACED IN ER17. PT IS DEAF AND ORIGINAL DISCUSSION TO HER CURRENT REASON FOR THE VISIT WAS DONE IN WRITING. PT HAS REQUESTED THE [facility]RI FOR HER VISIT. VRI CART WAS OBTAINED, HOWEVER THE WEBSITE FOR [facility] IS NOT CONNECTING. NURSING REWORKER CALLED AND HOSPITAL IT WAS CALLED FOR ASSISTANCE. PT WAS INFORMED OF THE ISSUE AND THAT UNTILS IT COULD BE RESOLVED THE VRI WAS NOT AVAILABLE AND THAT SHE WOULD HAVE TO WRITE HER CONVERSATIONS. PT UNDERSTOOD Addendum: 10/21/21 at 0836 by DAYANNA ABLE TO ACCESS VRI, PROVIDER IS IN WITH PT FOR EVALUATION
[2021-10-21] MEDS ORDERED: azithromycin 250mg tablet PO ONE (08:50)
[2021-10-21] MEDS ORDERED: CefTRIAXone 500MG IM Kit w/LIDOcaine IM ONE (08:50)
[2021-10-21] MEDS ORDERED: CELE-85 PO (08:52)
[2021-10-21] MEDS ORDERED: METR-159 PO (08:52)
[2021-10-21] MEDS ORDERED: FLUC200T8 PO (08:52)
== END 2021-10-21 10:22 | disposition home or self-care (01) ==
LOC: ER 06:57
DX: M25.562 Pain in left knee (principal); N76.0 Acute vaginitis; R30.9 Painful micturition, unspecified; J44.9 Chronic obstructive pulmonary disease, unspecified; F17.210 Nicotine dependence, cigarettes, uncomplicated; Z72.89 Other problems related to lifestyle; F12.90 Cannabis use, unspecified, uncomplicated; Z87.01 Personal history of pneumonia (recurrent); Z87.440 Personal history of urinary (tract) infections; Z86.14 Personal history of Methicillin resistant Staphylococcus aureus infection; Z98.51 Tubal ligation status; Z98.890 Other specified postprocedural states; Z56.0 Unemployment, unspecified; Z79.2 Long term (current) use of antibiotics; Z79.899 Other long term (current) drug therapy
CPT/HCPCS: 73564; 81003; 96372; 99284; J0696

== ENCOUNTER 2021-12-08 04:25 | Emergency (ER) | payer MEDICARE, MEDICAID ==
[~2021-12-08] VITALS: Ht 162.6 cm; Wt 66.0 kg
[~2021-12-08 04:25] MED LIST changes: +CELE-85 PO
[2021-12-08 04:49] VITALS: BP 133/67
[2021-12-08 05:40] LABS: BASOPHILS % (AUTO) 0.2 % (0-1); EOSINOPHILS # (AUTO) 0.1 X10'3 (0-0.9); EOSINOPHILS % (AUTO) 1.2 % (0-6); HEMOGLOBIN 14.3 g/dl (12.0-16.0); LYMPHOCYTES # (AUTO) 0.5 X10'3 (1.1-4.8); MEAN CORPUSCULAR HEMOGLOBIN 32.9 PG (27.0-31.0); MEAN CORPUSCULAR HGB CONC 34.9 g/dL (33.0-36.5); MEAN CORPUSCULAR VOLUME 94.1 FL (78-98); MEAN PLATELET VOLUME 7.3 FL (7.4-10.4); MONOCYTES # (AUTO) 0.5 X10'3 (0-0.9); MONOCYTES % (AUTO) 7.6 % (2-12); NEUTROPHILS # (AUTO) 5.9 X10'3 (1.8-7.7); PLATELET COUNT 218 X10'3 (140-440); RED BLOOD COUNT 4.36 X10'6 (4.20-5.60)
[2021-12-08 05:52] LABS: ALANINE AMINOTRANSFERASE 27 U/L (12-78); ALBUMIN/GLOBULIN RATIO 1.1 (1.1-1.5); ALKALINE PHOSPHATASE 89 IU/L (46-116); ANION GAP 11 (8-16); ASPARTATE AMINO TRANSFERASE 24 U/L (10-37); BILIRUBIN,TOTAL 0.5 MG/DL (0.1-1.0); BLOOD UREA NITROGEN 14 MG/DL (7-18); BUN/CREATININE RATIO 15.4 (6.6-38.0); CALCIUM 8.5 MG/DL (8.5-10.1); CHLORIDE 102 MMOL/L (99-107); CREATININE 0.91 MG/DL (0.40-0.90); GLUCOSE 115 MG/DL (70-104); POTASSIUM 3.7 MMOL/L (3.5-5.1); SODIUM 138 MMOL/L (135-145); TOTAL CARBON DIOXIDE 24.9 MMOL/L (24-32); TOTAL PROTEIN 7.6 G/DL (6.4-8.2); eGFR 65 ML/MIN
== END 2021-12-08 09:13 | disposition left against medical advice (07) ==
LOC: ER 04:26
DX: R07.9 Chest pain, unspecified (principal); Z53.21 Procedure and treatment not carried out due to patient leaving prior to being seen by health care provider
CPT/HCPCS: 36415; 71045; 80053; 83880; 84484; 85025; 93005

== ENCOUNTER 2023-01-11 08:55 | Emergency (ER) | payer MEDICARE, MEDICAID ==
[~2023-01-11] VITALS: Ht 170.2 cm; Wt 80.0 kg
[~2023-01-11 08:55] MED LIST changes: +ALBU6.7H14 INH; -ALBU6.7H9 INH; +CLIN-214 PO; -CLIN150C8 PO
[2023-01-11 09:14] VITALS: BP 128/89; PULSE 67; RESP 18; TEMP 97.2; O2SAT 99
[2023-01-11] MEDS ORDERED: AMOX-101 PO (11:34)
== END 2023-01-11 11:47 | disposition home or self-care (01) ==
LOC: ER 08:56
DX: H66.92 Otitis media, unspecified, left ear (principal); K08.89 Other specified disorders of teeth and supporting structures; J44.9 Chronic obstructive pulmonary disease, unspecified; F12.90 Cannabis use, unspecified, uncomplicated; Z79.2 Long term (current) use of antibiotics; Z79.1 Long term (current) use of non-steroidal anti-inflammatories (NSAID); Z79.899 Other long term (current) drug therapy; Z98.890 Other specified postprocedural states; Z98.51 Tubal ligation status
CPT/HCPCS: 99283

== ENCOUNTER 2023-07-06 11:01 | Emergency (ER) | payer MEDICARE, MEDICAID ==
[~2023-07-06] VITALS: Ht 162.6 cm; Wt 66.0 kg
[~2023-07-06 11:01] MED LIST changes: +CELE-127 PO; -CELE-85 PO
[2023-07-06 11:47] VITALS: BP 128/83; PULSE 74; RESP 18; TEMP 98.7; O2SAT 98
[2023-07-06] MEDS ORDERED: CLIN-97 PO (12:38)
[2023-07-06] MEDS: CefTRIAXone 1000mg IM Kit (w/lidocaine diluent) IM ONE (13:03)
== END 2023-07-06 13:18 | disposition home or self-care (01) ==
LOC: ER 11:02
DX: K04.7 Periapical abscess without sinus (principal); J44.9 Chronic obstructive pulmonary disease, unspecified; F17.200 Nicotine dependence, unspecified, uncomplicated; F12.90 Cannabis use, unspecified, uncomplicated; Z79.2 Long term (current) use of antibiotics; Z79.1 Long term (current) use of non-steroidal anti-inflammatories (NSAID); Z79.899 Other long term (current) drug therapy; Z98.51 Tubal ligation status
CPT/HCPCS: 96372; 99283; J0696

== ENCOUNTER 2023-10-03 21:31 | Emergency (ER) | payer MEDICARE, MEDICAID ==
[~2023-10-03] VITALS: Ht 162.6 cm; Wt 70.5 kg
[~2023-10-03 21:31] MED LIST changes: +CLIN-97 PO
[2023-10-03 21:46] VITALS: BP 144/104; PULSE 88; RESP 17; TEMP 97.8; O2SAT 97
[2023-10-03] MEDS: dexamethasone sod phosphate 10mg/ml inj IM STA (22:50)
[2023-10-03] MEDS ORDERED: ketorolac tromethamine 15mg/ml inj. IM ONE (22:55)
[2023-10-03] MEDS: ketorolac tromethamine 15mg/ml inj. IM ONE (23:10)
[2023-10-03] MEDS ORDERED: AMOX-580 PO (23:15)
== END 2023-10-04 00:12 | disposition home or self-care (01) ==
LOC: ER 21:32
DX: K04.7 Periapical abscess without sinus (principal); J44.9 Chronic obstructive pulmonary disease, unspecified; F12.90 Cannabis use, unspecified, uncomplicated; Z79.1 Long term (current) use of non-steroidal anti-inflammatories (NSAID); Z79.2 Long term (current) use of antibiotics; Z79.899 Other long term (current) drug therapy; Z98.51 Tubal ligation status; Z98.890 Other specified postprocedural states
CPT/HCPCS: 96372; 99284; J1100; J1885

== ENCOUNTER 2024-01-13 02:15 | Emergency (ER) | payer MEDICARE, MEDICAID ==
[~2024-01-13] VITALS: Ht 162.6 cm; Wt 69.1 kg
[~2024-01-13 02:15] MED LIST changes: +CHLO473M13 PO; -CHLO473M3 PO
[2024-01-13] MEDS ORDERED: CARB100C9 PO (03:04)
[2024-01-13] MEDS ORDERED: HYDR-3965 PO (03:04)
[2024-01-13] MEDS ORDERED: PRED50TA PO (03:06)
[2024-01-13] MEDS ORDERED: DIPH25TA27 PO (03:06)
[2024-01-13] MEDS: predniSONE 20 mg tablet PO ONE (03:15)
[2024-01-13] MEDS: HYDROcodone/acetaminophen 5mg/325mg tablet PO ONE (03:15)
[2024-01-13] MEDS: diphenhydrAMINE 25mg capsule PO ONE (03:15)
[2024-01-13 03:25] VITALS: BP 134/89; PULSE 82; RESP 16; TEMP 98.9; O2SAT 96
== END 2024-01-13 03:27 | disposition home or self-care (01) ==
LOC: ER 02:15
DX: G50.0 Trigeminal neuralgia (principal); R21 Rash and other nonspecific skin eruption; J44.9 Chronic obstructive pulmonary disease, unspecified; F12.90 Cannabis use, unspecified, uncomplicated; Z79.1 Long term (current) use of non-steroidal anti-inflammatories (NSAID); Z79.2 Long term (current) use of antibiotics; Z72.89 Other problems related to lifestyle; Z56.0 Unemployment, unspecified; Z98.890 Other specified postprocedural states; Z98.51 Tubal ligation status
CPT/HCPCS: 99284; J7512; Q0163

== ENCOUNTER 2024-01-21 20:11 | Emergency (ER) | payer MEDICARE, MEDICAID ==
[~2024-01-21] VITALS: Ht 167.6 cm; Wt 68.2 kg
[~2024-01-21 20:11] MED LIST changes: +CARB100C9 PO; +DIPH25TA27 PO; +HYDR-3965 PO; +PRED50TA PO
[2024-01-21 20:45] LABS: BASOPHILS % (AUTO) 0.4 % (0-1); EOSINOPHILS # (AUTO) 0.3 X10'3 (0-0.9); EOSINOPHILS % (AUTO) 4.4 % (0-6); HEMATOCRIT 39.6 % (35.0-45.0); HEMOGLOBIN 13.4 g/dl (12.0-16.0); LYMPHOCYTES # (AUTO) 2.3 X10'3 (1.1-4.8); MEAN CORPUSCULAR HEMOGLOBIN 32.5 PG (27.0-31.0); MEAN CORPUSCULAR HGB CONC 33.9 g/dL (33.0-36.5); MEAN PLATELET VOLUME 7.4 FL (7.4-10.4); MONOCYTES # (AUTO) 0.4 X10'3 (0-0.9); MONOCYTES % (AUTO) 7.3 % (2-12); NEUTROPHILS % (AUTO) 49.9 % (42-75); PLATELET COUNT 214 X10'3 (140-440); RED BLOOD COUNT 4.13 X10'6 (4.20-5.60); RED CELL DISTRIBUTION WIDTH 13.3 % (11.5-14.5); WHITE BLOOD COUNT 5.9 X10'3 (4.5-11.0)
[2024-01-21 20:58] LABS: BILIRUBIN,TOTAL 0.2 MG/DL (0.1-1.0); BLOOD UREA NITROGEN 7 MG/DL (7-18); BUN/CREATININE RATIO 10.3 (10.0-20.0); CALCIUM 7.6 MG/DL (8.5-10.1); CREATININE 0.68 MG/DL (0.40-0.90); TOTAL CARBON DIOXIDE 26.9 MMOL/L (24-32); TOTAL PROTEIN 5.9 G/DL (6.4-8.2); eCRCL 90 ML/MIN; eGFR > 90 ML/MIN
[2024-01-21 20:59] LABS: ALANINE AMINOTRANSFERASE 21 U/L (12-78); ALBUMIN 2.7 G/DL (3.4-5.0); ALBUMIN/GLOBULIN RATIO 0.8 (1.1-1.5); ALKALINE PHOSPHATASE 82 IU/L (46-116)
[2024-01-21 21:20] LABS: ASPARTATE AMINO TRANSFERASE 10 U/L (10-37)
[2024-01-21 21:39] LABS: ANION GAP 7 (8-16); CHLORIDE 110 MMOL/L (99-107); GLUCOSE 98 MG/DL (70-104); POTASSIUM 3.9 MMOL/L (3.5-5.1); SODIUM 144 MMOL/L (135-145)
[2024-01-21 21:53] LABS: LIPASE 65 U/L (16-77)
--- NOTE | 2024-01-21 22:01 | NUR ---
pt to CT in wheelchair with CT superintendent transportation
[2024-01-21] MEDS: normal saline 1000ml 1,000 ML IV ONE (22:10)
[2024-01-21 22:11] VITALS: TEMP 98.4
--- NOTE | 2024-01-21 23:10 | NUR ---
PATIENT USED PHONE TO COMMUNICATE SHE WAS HAVING LOWER ABDOMINAL PAIN. DR. CORDOVA NOTIFIED. VERBAL ORDERS GIVEN FOR ONE TIME DOSE OF NORCO 5MG PO.
[2024-01-21] MEDS ORDERED: AMOX-419 PO (23:23)
[2024-01-21] MEDS ORDERED: HYDR-3965 PO (23:26)
[2024-01-21] MEDS ORDERED: ONDA-245 PO (23:26)
[2024-01-21] MEDS: HYDROcodone/acetaminophen 5mg/325mg tablet PO ONE (23:28)
[2024-01-21] MEDS: ondansetron 4mg rapidly disintigrating tab PO ONE (23:30)
[2024-01-21] MEDS: amox tr/potassium clavulanate 500mg/125mg TAB PO ONE (23:30)
--- NOTE | 2024-01-21 23:32 | NUR ---
Per patient preferance phone notes idris used to commuicate medication education and patient pain level.
--- NOTE | 2024-01-21 23:32 | NUR ---
Dr. Lambert at bedside.
[2024-01-21 23:51] VITALS: BP 166/93; PULSE 57; RESP 16; O2SAT 98
== END 2024-01-21 23:48 | disposition home or self-care (01) ==
LOC: ER 20:12
DX: K52.89 Other specified noninfective gastroenteritis and colitis (principal); K62.5 Hemorrhage of anus and rectum; J44.9 Chronic obstructive pulmonary disease, unspecified; F12.90 Cannabis use, unspecified, uncomplicated; Z79.1 Long term (current) use of non-steroidal anti-inflammatories (NSAID); Z79.2 Long term (current) use of antibiotics; Z79.899 Other long term (current) drug therapy; Z98.890 Other specified postprocedural states; Z98.51 Tubal ligation status
CPT/HCPCS: 36415; 74176; 80053; 83690; 84145; 85025; 96360; 99284; J7030